=== PATIENT | male | born 1930 | race Caucasian/White ===

== ENCOUNTER → 2016-09-25 | Outpatient (CLI) | payer MEDICARE ==
--- NOTE | 2016-09-25 14:26 | KCIC ---
Chest two views Indication: Shortness of air and wheezing. Time of exam 2:16 p.m. No prior studies are available for comparison. The heart is enlarged. There is no infiltrate or failure. There appears to be trace pleural fluid on the right. The pulmonary vascularity is unremarkable. No pneumothorax is seen. Impression: Cardiomegaly and trace right pleural effusion. Electronically signed by: Kory Finch MD (Sep 25, 2016 14:25:51)
== END | disposition home or self-care (01) ==
LOC: KCIC 13:52
PROVIDERS: ATTEND Specialist
DX: I51.7 Cardiomegaly (principal); J90 Pleural effusion, not elsewhere classified
CPT/HCPCS: 71020